=== PATIENT | male | born 1970 | race Caucasian/White ===

== ENCOUNTER 2021-02-26 15:26 | Inpatient (IN) | payer BC ==
[~2021-02-26] VITALS: Ht 185.4 cm; Wt 174.6 kg
[~2021-02-26 15:26] MED LIST: ASPIRIN CHEWABL81 MG PO; HYDROCHLOROTHIA25 MG PO
[2021-02-26] MEDS ORDERED: PROAIR HFA8.5 GM INH (20:51)
[2021-02-26] MEDS ORDERED: MUCINEX DM ER1 EACH PO (20:51)
[2021-02-26 23:13] LABS: HEMOGLOBIN 13.5 gm/dl (14.0-17.5); RED BLOOD COUNT 4.8 M/UL (4.20-5.50); WHITE BLOOD COUNT 7.7 K/UL (4.5-11.0)
[2021-02-26 23:48] LABS: BUN/CREATININE RATIO 10 (0-10)
[2021-02-27] MEDS ORDERED: IBUPROFEN800 MG PO (09:09)
[2021-02-27] MEDS ORDERED: TOPROL XL50 MG PO (21:01)
[2021-02-27] MEDS ORDERED: COZAAR 50MG TAB50 MG PO (21:01)
[2021-02-28 04:45] LABS: HEMOGLOBIN 12.2 gm/dl (14.0-17.5); RED BLOOD COUNT 4.63 M/UL (4.20-5.50)
[2021-02-28 04:49] LABS: WHITE BLOOD COUNT 9.7 K/UL (4.5-11.0)
[2021-02-28 05:04] LABS: BUN/CREATININE RATIO 17 (0-10)
[2021-03-01 05:53] LABS: HEMOGLOBIN 12.4 gm/dl (14.0-17.5); RED BLOOD COUNT 4.47 M/UL (4.20-5.50); WHITE BLOOD COUNT 8.8 K/UL (4.5-11.0)
[2021-03-01 06:17] LABS: BUN/CREATININE RATIO 17 (0-10)
[2021-03-02 03:44] LABS: HEMOGLOBIN 12.7 gm/dl (14.0-17.5); RED BLOOD COUNT 4.59 M/UL (4.20-5.50); WHITE BLOOD COUNT 8.9 K/UL (4.5-11.0)
[2021-03-02 04:14] LABS: BUN/CREATININE RATIO 20 (0-10)
[2021-03-02] MEDS ORDERED: BUDESONIDE0.5 MG/2 M INH (13:13)
[2021-03-02] MEDS ORDERED: ELIQUIS5 MG PO (13:13)
[2021-03-02] MEDS ORDERED: IPRAT-ALBUT 0.5-3 ML INH (13:13)
[2021-03-02] MEDS ORDERED: DEXAMETHASONE1 MG PO (13:13)
[2021-03-02] MEDS ORDERED: TESSALON PERLE100 MG PO (13:15)
[2021-03-02] MEDS ORDERED: NEBULIZER UNIT INH (13:15)
[2021-03-02] MEDS ORDERED: DOXYCYCLINE HY100 MG PO (13:24)
--- NOTE | 2021-03-02 13:34 | NUR ---
1325: ROOM AIR SPO2 NOTED AT 86% PER VERBAL REQUEST DR DOUGLAS.
== END 2021-03-02 19:20 | disposition home or self-care (01) | DRG 177 ==
LOC: ER1 15:26 → MED SURG 4 02-27 00:52 → CDU 02-27 00:52 → MED SURG 4 02-28 16:29
PROVIDERS: Internal Medicine; Physician Assistant; ADMIT Internal Medicine
PROC: XW033E5 Introduction of Remdesivir Anti-infective into Peripheral Vein, Percutaneous Approach, New Technology Group 5 (ICD-10-PCS; principal; 2021-02-27)
PROC: 3E0333Z Introduction of Anti-inflammatory into Peripheral Vein, Percutaneous Approach (ICD-10-PCS; 2021-02-27)
PROC: XW13325 Transfusion of Convalescent Plasma (Nonautologous) into Peripheral Vein, Percutaneous Approach, New Technology Group 5 (ICD-10-PCS; 2021-02-27)
PROC: XW033G6 Introduction of REGN-COV2 Monoclonal Antibody into Peripheral Vein, Percutaneous Approach, New Technology Group 6 (ICD-10-PCS; 2021-02-27)
PROC: 8E0ZXY6 Isolation (ICD-10-PCS; 2021-03-02)
DX: U07.1 COVID-19 (principal); J12.82 Pneumonia due to coronavirus disease 2019; J96.01 Acute respiratory failure with hypoxia; N17.9 Acute kidney failure, unspecified; Z68.43 Body mass index [BMI] 50.0-59.9, adult; I10 Essential (primary) hypertension; E66.9 Obesity, unspecified; Z96.659 Presence of unspecified artificial knee joint; R73.03 Prediabetes; Z90.49 Acquired absence of other specified parts of digestive tract; Z98.890 Other specified postprocedural states; Z88.0 Allergy status to penicillin; Z82.49 Family history of ischemic heart disease and other diseases of the circulatory system
CPT/HCPCS: 36415; 36600; 71045; 80048; 80053; 82550; 82553; 82728; 82803; 83036; 83615; 83874; 84484; 85025; 85379; 86140; 86900; 86901; 86927; 93005; 94760; 96365; 96375; 99285; J1100; J1650; J1940; J2405; J7030; J7050; U0002

== ENCOUNTER 2021-03-12 10:06 | Emergency (ER) | payer BC ==
[~2021-03-12 10:06] MED LIST changes: +BUDESONIDE0.5 MG/2 M INH; +COZAAR 50MG TAB50 MG PO; +DEXAMETHASONE1 MG PO; +DOXYCYCLINE HY100 MG PO; +ELIQUIS5 MG PO; +IBUPROFEN800 MG PO; +IPRAT-ALBUT 0.5-3 ML INH; +MUCINEX DM ER1 EACH PO; +NEBULIZER UNIT INH; +PROAIR HFA8.5 GM INH; +TESSALON PERLE100 MG PO; +TOPROL XL50 MG PO
[2021-03-12 10:42] LABS: HEMOGLOBIN 13.8 gm/dl (14.0-17.5); RED BLOOD COUNT 4.87 M/UL (4.20-5.50)
[2021-03-12 11:08] LABS: BUN/CREATININE RATIO 24 (0-10)
[2021-03-12] MEDS ORDERED: ZOFRAN ODT 4 MG4 MG PO (13:30)
[2021-03-12] MEDS ORDERED: CEFPODOXIME PR200 MG PO (13:30)
[2021-03-12] MEDS ORDERED: VIBRAMYCIN 100100 MG PO (13:30)
== END 2021-03-12 14:12 | disposition home or self-care (01) ==
LOC: ER1 10:06
PROVIDERS: Student in an Organized Health Care Education/Training Program
DX: U07.1 COVID-19 (principal); I10 Essential (primary) hypertension; Z90.49 Acquired absence of other specified parts of digestive tract; Z88.0 Allergy status to penicillin
CPT/HCPCS: 36600; 71045; 80053; 82550; 82553; 82803; 83605; 83690; 83735; 83874; 83880; 84100; 84484; 85025; 85610; 85652; 85730; 86140; 93005; 99285; Q9967; U0002